=== PATIENT | female | born 1950 | race Caucasian/White ===

== ENCOUNTER 2024-10-14 14:18 | Outpatient (AMB) | payer MEDICARE, SELFPAY ==
--- NOTE | 2024-10-14 14:45 | HO.NEPHOV ---
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 She is 74 years of age and in good health. She has been on Metformin for IGT and recently had been initiated on low dose Jardiance but has not taken it yet. She is concerned about her current serum creatinine and GFR. She hydrates herself well and avoids excess NSAID's. She has no dizziness, PND, orthopnea, edema, hematuria or urinary symptoms. She does not get recurrent UTI and does not have any H/O renal calculi. She has no H/O malignancy. She has no H/O reflux nephropathy as a child. [facility] Medical History (Updated 10/14/24 @ 15:16 by Billy Yoo MD) Chronic kidney disease Surgical History (Updated 10/14/24 @ 14:52 by Ashley Leo MA) H/O breast surgery Hx of cholecystectomy H/O section Family History (Updated 10/14/24 @ 14:51 by Ashley Leo MA) Mother Diabetes mellitus COPD (chronic obstructive pulmonary disease) Paternal Uncle Polycystic kidney disease Social History (Updated 10/14/24 @ 14:50 by Ashley Leo MA) Alcohol intake: never Patient Tobacco Use Status: Never used Tobacco Use of substances other than those prescribed or required for medical reasons: No Review of Systems Const All systems reviewed & are unremarkable except as noted in HPI and below Physical Exam Vital Signs: Last Vital Signs Pulse 81 10/14/24 14:55 BP 110/78 10/14/24 14:55 Pulse Ox 95 10/14/24 14:55 Oxygen Delivery Method Room Air 10/14/24 14:55 BMI result Body Mass Index 30.8 Const General: comfortable and no acute distress Orientation/consciousness: patient oriented x3 HEENT Head: Yes normocephalic Mouth: Normal oral and palatal mucosa present Eyes EOM: EOMs intact bilaterally Neck Neck: Yes supple Resp Auscultation: clear to auscultation bilaterally Cardio Jugular venous distension: no JVD Rate: regular rate GI Palpation (GI): Soft to palpation Auscultation: normal bowel sounds General: Yes no CVA tenderness Back/Spine/Pelvis Back: no CVA tenderness Skin General skin exam: no rashes or lesions noted Neuro General: patient oriented x3 and moves all extremities Extrem General: Yes no pedal edema Assessment & Plan Assessment & Plan (1) CKD (chronic kidney disease) stage 2, GFR 60-89 ml/min: Code(s): N18.2 - Chronic kidney disease, stage 2 (mild) Category: Medical Plan Claudette has mild CKD likely due to loss of GFR due to unknown etiology at an unknown time. Her serum creatinine is marginally abnormal with loss of GFR, manifesting now likely when she had loss of GFR with ageing. She has no proteinuria or hematuria and her BP is at goal. She has IGT and is on metformin. I encouraged her to take Jardiance and come off metformin with time( HbA1c ordered in 3 months) . I have ordered 24 hour urine for cr clearance. She can have GLP 1 agonist. We can consider low dose of ACEI in the future if she tolerates it. She should remain well hydrated and minimize NSAID's. All these were discussed in detail. Answered all questions and F/U was given. Orders: Orders Creatinine Clearance Urine 24U Today N18.2 - Chronic kidney disease, stage 2 (mild) Creatinine Today N18.2 - Chronic kidney disease, stage 2 (mild) Blood Urea Nitrogen Today N18.2 - Chronic kidney disease, stage 2 (mild) Hemoglobin A1c 1 Month N18.2 - Chronic kidney disease, stage 2 (mild) Coding Level of Care Code Est Pt Level 4 (71818) Diagnoses CKD (chronic kidney disease) stage 2, GFR 60-89 ml/min N18.2
[2024-10-14 14:55] VITALS: BP 110/78; PULSE 81; O2SAT 95; BMI 30.8
--- OUTSIDE RECORDS SUMMARY | 2024-10-14 15:16 | XMS_ITS | Encounter Summary ---
Author Organization [facility] Address [address] [place] [id number] Care Team Providers Care Hospice Nurse Practitioner Name Role Phone Christy Hunt Primary Care Provider [phone] Encounter Details Date Type Department Care Team (Late st Contact Info) Description 02/25/2020 Scanned Document [facility] [address] [place] [address] Javi Sumner MD [address] [phone] Social History Tobacco Use Types Packs/Day Years Used Date Smoking Tobacco: Never Smokeless Tobacco: Never Comments Unknown Sex and Gender Information Value Date Recorded Sex Assigned at Female 12/08/2022 11:24 AM EDT Legal Sex Female 6:56 PM EDT Gender Identity Female 12/08/2022 11:24 AM EDT Sexual Orientation Heterosexual (straight) 12/08 11:24 AM EDT documented as of this encounter Plan of Treatment Upcoming Encounters Date Type Department Care Team (Late st Contact Info) Description 02/03/2025 8:45 AM EST Office Visit [address] [phone] Javi Sumner MD [address] [phone] documented as of this encounter Visit Diagnoses Not on filedocumented in this encounter Care Teams Hospice Nurse Practitioner Relationship Specialty Start Date End Date Christy Hunt PA PCP - General 01/12/20 documented as of this encounter
--- OUTSIDE RECORDS SUMMARY | 2024-10-14 15:16 | XMS_ITS | Encounter Summary ---
Author Organization [facility] Address [address] [place] [address] Care Team Providers Care Electrical Apprentice Name Role Phone Christy Hunt Primary Care Provider [phone] Encounter Details Date Type Department Care Team (Late st Contact Info) Description 07/07/2021 Scanned Document [facility] [address] [phone] Social History Tobacco Use Types Packs/Day Years [...] Description 02/03/2025 8:45 AM EST Office Visit [address] [phone] Javi Sumner MD [address] [place] [phone] documented as of this encounter Visit Diagnoses Not on filedocumented in this encounter Care Teams Electrical Apprentice Relationship Specialty Start Date End Date Christy Hunt PA PCP - General 01/12/20 documented as of this encounter
--- OUTSIDE RECORDS SUMMARY | 2024-10-14 15:16 | XMS_ITS ---
Author Name [facility] Organization Unknown Results Test Name/Text Value Interpretation Date Range Source HDLc SerPl-mCnc 50.0 mg/dL Normal 08/20/2024 - QU EST Cholest SerPl-mCnc 138.0 mg/dL Normal 08/20/2024 - 200 [facility] NonHDLc SerPl-mCnc 88.0 mg/dL (calc) Normal 08/20/2024 - 130 [facility] LDLc SerPl Calc-mCnc 70.0 mg/dL (calc) Normal 08/20/2024 [facility] Cholest/HDLc SerPl 2.8 (calc) Normal 08/20/2024 - 5 [facility] Trigl SerPl-mCnc 99.0 mg/dL Normal 08/20/2024 - 150 Q [facility] Creat Ur-mCnc 105.0 mg/dL Normal 08/20/2024 20 - [address] Albumin/Creat Ur 3.0 mg/g creat Normal 08/20/2024 - 30 [facility] Microalbumin Ur-mCnc 0.3 mg/dL Normal 08/20/2024 - [facility] Est. average glucose Bld gHb Est-mCnc 143.0 mg/dL (calc) 08/20/2024 [facility] HbA1c MFr Bld 6.2 % Above high normal 08/20/2024 - 5.7 [facility] Prot SerPl-mCnc 6.6 g/dL Normal 08/20/2024 6.1 - 8.[address] CO2 SerPl-sCnc 23.0 mmol/L Normal 08/20/2024 20 - 32 [facility] Albumin/Glob SerPl 1.8 (calc) Normal 08/20/2024 1 - 2.5 [facility] Globulin Ser Calc-mCnc 2.4 g/dL (calc) Normal 08/20/2024 1.9 - 3.7 [facility] Sodium SerPl-sCnc 136.0 mmol/L Normal 08/20/2024 135 - 14 6 [facility] AST SerPl-cCnc 19.0 U/L Normal 08/20/2024 10 - 35 [facility] T Creat SerPl-mCnc 1.03 mg/dL Above high normal 08/20/2024 0.6 - 1 [facility] Albumin SerPl-mCnc 4.2 g/dL Normal 08/20/2024 3.6 - 5.1 [facility] Potassium SerPl-sCnc 4.3 mmol/L Normal 08/20/2024 3.5 - 5 .3 [facility] ALP SerPl-cCnc 85.0 U/L Normal 08/20/2024 37 - 153 [facility] BUN SerPl-mCnc 25.0 mg/dL Normal 08/20/2024 7 - [address] eGFRcr SerPlBld CKD-EPI 2020 57.0 mL/min/1.73m2 Below low normal 08/20/2024 - [facility] Calcium SerPl-mCnc 9.1 mg/dL Normal 08/20/2024 8.6 - 10.4 [facility] Chloride SerPl-sCnc 105.0 mmol/L Normal 08/20/2024 98 - 1 10 [facility] ALT SerPl-cCnc 14.0 U/L Normal 08/20/2024 6 - 29 [facility] BUN/Creat SerPl 24.0 (calc) Above high normal 08/20/2024 6 - 22 [facility] Glucose SerPl-mCnc 99.0 mg/dL Normal 08/20/2024 65 - 99 [facility] Bilirub SerPl-mCnc 0.7 mg/dL Normal 08/20/2024 0.2 - 1.2 [facility] BUN/Creat SerPl SEE NOTE: Normal 04/23/2024 6 - [address] Albumin/Glob SerPl 1.9 (calc) Normal 04/23/2024 1 - 2.5 [facility] Calcium SerPl-mCnc 9.6 mg/dL Normal 04/23/2024 8.6 - 10.4 [facility] Sodium SerPl-sCnc 138.0 mmol/L Normal 04/23/2024 135 - 14 6 [facility] ALP SerPl-cCnc 75.0 U/L Normal 04/23/2024 37 - 153 [facility] Globulin Ser Calc-mCnc 2.3 g/dL (calc) Normal 04/23/2024 1.9 - 3.7 [facility] Creat SerPl-mCnc 0.98 mg/dL Normal 04/23/2024 0.6 - 1 Q [facility] Bilirub SerPl-mCnc 0.5 mg/dL Normal 04/23/2024 0.2 - 1.2 [facility] AST SerPl-cCnc 19.0 U/L Normal 04/23/2024 10 - 35 [facility] Potassium SerPl-sCnc 4.4 mmol/L Normal 04/23/2024 3.5 - 5 .3 [facility] Chloride SerPl-sCnc 104.0 mmol/L Normal 04/23/2024 98 - 1 10 [facility] BUN SerPl-mCnc 23.0 mg/dL Normal 04/23/2024 7 - [address] Prot SerPl-mCnc 6.6 g/dL Normal 04/23/2024 6.1 - 8.[address] Albumin SerPl-mCnc 4.3 g/dL Normal 04/23/2024 3.6 - 5.1 [facility] CO2 SerPl-sCnc 26.0 mmol/L Normal 04/23/2024 20 - 32 [facility] ALT SerPl-cCnc 15.0 U/L Normal 04/23/2024 6 - 29 [facility] Glucose SerPl-mCnc 99.0 mg/dL Normal 04/23/2024 65 - 99 [facility] eGFRcr SerPlBld CKD-EPI 2020 61.0 mL/min/1.73m2 Normal 04/23/2024 - [facility] Phosphate SerPl-mCnc 4.2 mg/dL Normal 04/23/2024 2.1 - 4. 3 [facility] 25(OH)D3+25(OH)D2 SerPl-mCnc 44.0 ng/mL Normal 04/23/2024 30 - 100 [facility] Calcium SerPl-mCnc 9.6 mg/dL Normal 04/23/2024 8.6 - 10.4 [facility] PTH-Intact SerPl-mCnc 19.0 pg/mL Normal 04/23/2024 16 - 7 7 [facility] Cholest SerPl-mCnc 166.0 mg/dL Normal 04/23/2024 - 200 [facility] LDLc SerPl Calc-mCnc 88.0 mg/dL (calc) Normal 04/23/2024 [facility] HDLc SerPl-mCnc 55.0 mg/dL Normal 04/23/2024 - QU EST NonHDLc SerPl-mCnc 111.0 mg/dL (calc) Normal 04/23/2024 - 130 [facility] Trigl SerPl-mCnc 126.0 mg/dL Normal 04/23/2024 - 150 [facility] Cholest/HDLc SerPl 3.0 (calc) Normal 04/23/2024 - 5 [facility] HbA1c MFr Bld 6.4 % of total Hgb Above high normal 04/23/2024 - 5.7 [facility] Est. average glucose Bld gHb Est-mCnc 151.0 mg/dL (calc) Normal 04/23/2024 [facility] Bilirub SerPl-mCnc 0.6 mg/dL Normal 12/26/2023 0.2 - 1.2 [facility] BUN SerPl-mCnc 17.0 mg/dL Normal 12/26/2023 7 - [address] Creat SerPl-mCnc 1.03 mg/dL Above high normal 12/26/2023 0.6 - 1 [facility] Globulin Ser Calc-mCnc 2.1 g/dL (calc) Normal 12/26/2023 1.9 - 3.7 [facility] Albumin SerPl-mCnc 4.2 g/dL Normal 12/26/2023 3.6 - 5.1 [facility] Sodium SerPl-sCnc 140.0 mmol/L Normal 12/26/2023 135 - 14 6 [facility] ALP SerPl-cCnc 67.0 U/L Normal 12/26/2023 37 - 153 [facility] T eGFRcr SerPlBld CKD-EPI 2020 58.0 mL/min/1.73m2 Below low normal 12/26/2023 - [facility] Potassium SerPl-sCnc 4.4 mmol/L Normal 12/26/2023 3.5 - 5 .3 [facility] Calcium SerPl-mCnc 9.4 mg/dL Normal 12/26/2023 8.6 - 10.4 [facility] ALT SerPl-cCnc 18.0 U/L Normal 12/26/2023 6 - 29 [facility] Chloride SerPl-sCnc 105.0 mmol/L Normal 12/26/2023 98 - 1 10 [facility] Albumin/Glob SerPl 2.0 (calc) Normal 12/26/2023 1 - 2.5 [facility] CO2 SerPl-sCnc 25.0 mmol/L Normal 12/26/2023 20 - 32 [facility] Prot SerPl-mCnc 6.3 g/dL Normal 12/26/2023 6.1 - 8.[address] BUN/Creat SerPl 17.0 (calc) Normal 12/26/2023 6 - 22 Q [facility] AST SerPl-cCnc 23.0 U/L Normal 12/26/2023 10 - 35 [facility] Glucose SerPl-mCnc 98.0 mg/dL Normal 12/26/2023 65 - 99 [facility] TSH SerPl-aCnc 2.43 mIU/L Normal 12/26/2023 0.4 - 4.[address] Basophils/leuk NFr Bld Auto 1.0 % Normal 12/26/2023 [facility] Monocytes/leuk NFr Bld Auto 9.9 % Normal 12/26/2023 [facility] Hct VFr Bld Auto 40.3 % Normal 12/26/2023 35 - 45 [facility] Lymphocytes/leuk NFr Bld Auto 23.3 % Normal 12/26/2023 [facility] Monocytes # Bld Auto 485.0 cells/uL Normal 12/26/2023 200 - 950 [facility] PMV Bld Bobby-Seymour 9.8 fL Normal 12/26/2023 7.5 - 12.5 [facility] Platelet # Bld Auto 302.0 Thousand/uL Normal 12/26/2023 140 - 400 [facility] Neutrophils # Bld Auto 2896.0 cells/uL Normal 12/26/2023 1500 - 7800 [facility] Lymphocytes # Bld Auto 1142.0 cells/uL Normal 12/26/2023 850 - 3900 [facility] Eosinophil/leuk NFr Bld Auto 6.7 % Normal 12/26/2023 [facility] Basophils # Bld Auto 49.0 cells/uL Normal 12/26/2023 0 - 200 [facility] Neutrophils/leuk NFr Bld Auto 59.1 % Normal 12/26/2023 [facility] RBC # Bld Auto 4.33 Million/uL Normal 12/26/2023 3.8 - 5. 1 [facility] WBC # Bld Auto 4.9 Thousand/uL Normal 12/26/2023 3.8 - 10 .8 [facility] RDW RBC Auto-Rto 12.2 % Normal 12/26/2023 11 - 15 [facility] MCHC RBC Auto-mCnc 32.0 g/dL Normal 12/26/2023 32 - 36 [facility] Hgb Bld-mCnc 12.9 g/dL Normal 12/26/2023 11.7 - 15.5 [facility] MCH RBC Qn Auto 29.8 pg Normal 12/26/2023 27 - [address] Eosinophil # Bld Auto 328.0 cells/uL Normal 12/26/2023 15 - 500 [facility] MCV RBC Auto 93.1 fL Normal 12/26/2023 80 - 100 [facility] Est. average glucose Bld gHb Est-mCnc 140.0 mg/dL (calc) Normal 12/26/2023 [facility] HbA1c MFr Bld 6.1 % of total Hgb Above high normal 12/26/2023 - 5.7 [facility] NonHDLc SerPl-mCnc 78.0 mg/dL (calc) Normal 12/26/2023 - 130 [facility] HDLc SerPl-mCnc 48.0 mg/dL Below low normal 12/26/2023 - [facility] Cholest/HDLc SerPl 2.6 (calc) Normal 12/26/2023 - 5 [facility] LDLc SerPl Calc-mCnc 63.0 mg/dL (calc) Normal 12/26/2023 [facility] Cholest SerPl-mCnc 126.0 mg/dL Normal 12/26/2023 - 200 [facility] Trigl SerPl-mCnc 66.0 mg/dL Normal 12/26/2023 - 150 Q [facility] History of Medication Use Medication Directions Dispensed Refills Start Date End Date Stat us Jardiance 10 mg tablet Take 1 tablet every day by oral route, for kidney protection/blood sugar. 09/11/2024 active rifAXIMin (XIFAXAN) 550 mg tablet Take 1 tablet (550 mg total) by mouth 3 (three) times a day for 14 days. 05/30/2024 active hydrocodone 10 mg-chlorpheniramine 8 mg/5 mL oral susp extend.rel 12hr Take 5 mL every 12 hours by oral route as needed, for cough. 05/26/2024 active fluticasone-salmetero l (WIXELA INHUB) 500-50 mcg/act inhaler Inhale 1 puff 2 (two) times a day. 05/02/2024 active metformin ER 500 mg tablet,extended release 24 hr Take 1 tablet every day by oral route. 04/29/2024 active doxycycline (VIBRAMYCIN) 100 MG capsule Take 1 capsule (100 mg total) by mouth 2 (two) times a day. 03/03/2024 active sodium,potassium,mag sulfates (Suprep Bowel Prep Kit) 17.5-3.13-1.6 gram recon soln bowel prep kit oral solution Take as directed per instructions from the office. 01/25/2024 active rosuvastatin (CRESTOR) 10 MG tablet 12/26/2021 suspended Atorvastatin 08/24/2021 active CoQ10 100mg Softgel 08/24/2021 a ctive Travatan Z 0.004% Ophthalmic Solution 08/24/2021 activ e risedronate (ACTONEL) 150 mg tablet TAKE 1 TABLET BY MOUTH EVERY 30 DAYS WITH WATER ON EMPTY STOMACH. DO NOT LIE DOWN FOR NEXT 30 MIN 08/19/2021 active escitalopram (LEXAPRO) 10 mg tablet Take 1 tablet (10 mg total) by mouth 1 (one) time each day. 06/14/2021 active triamcinolone-hydroph ilic base 0.1 % topical ointment APPLY TO AFFECTED AREA TWICE A DAY FOR 2 WEEKS, STOP FOR 3 DAYS. REPEAT NEEDED 03/28/2021 5 completed triamcinolone (KENALOG) 0.1 % ointment APPLY TO AFFECTED AREA TWICE A DAY FOR 2 WEEKS, STOP FOR 3 DAYS. REPEAT NEEDED 03/28/2021 active metFORMIN (GLUCOPHAGE) 500 MG tablet 1 qd with breakfast then increase to 1 bid with meals after 2 weeks 12/16/2020 active travoprost, KUN Free, (TRAVATAN Z) 0.004 % ophthalmic solution PLACE 1 DROP INTO BOTH EYES AT BEDTIME 11/07/2019 active cyclosporine 0.05 % eye drops in a dropperette INSTIL ONE DROP INTO EACH EYE TWICE DAILY 5 completed doxycycline hyclate 100 mg capsule TAKE 1 CAPSULE BY MOUTH TWICE A DAY 5 completed oseltamivir 75 mg capsule TAKE 1 CAPSULE TWICE A DAY BY ORAL ROUTE WITH MEAL(S) FOR 5 DAYS. 5 completed prednisone 10 mg tablet PLEASE SEE ATTACHED FOR DETAILED DIRECTIONS 5 completed promethazine-DM 6.25 mg-15 mg/5 mL oral syrup TAKE 5 ML EVERY 6 HOURS BY ORAL ROUTE NEEDED, FOR COUGH. 5 completed risedronate 150 mg tablet Take 1 tablet every month by oral route. 5 completed sodium,potassium,mag sulfates 17.5 gram-3.13 gram-1.6 gram oral soln TAKE DIRECTED PER INSTRUCTIONS FROM THE OFFICE. 5 completed Co Q-10 4 active metformin ER 500 mg tablet,extended release 24 hr active doxycycline hyclate 100 mg capsule active hydrocodone 10 mg-chlorphenirami ne 8 mg/5 mL oral susp extend.rel 12hr active prednisone 10 mg tablet active promethazine-DM 6.25 mg-15 mg/5 mL oral syrup active oseltamivir 75 mg capsule active Jardiance 10 mg tablet active brimonidine 0.1 % eye drops INSTILL 1 DROP INTO EACH EYE TWICE DAILY active cholecalciferol (vitamin D3) 50 mcg (2,000 unit) tablet Take 2,000 Units by mouth 2 (two) times a day. active cyanocobalamin (vit B-12) 500 mcg tablet Take 1 tablet (500 mcg total) by mouth daily. active escitalopram 10 mg tablet TAKE 1 TABLET BY MOUTH EVERY DAY active magnesium citrate active mupirocin 2 % topical ointment APPLY TO AFFECTED AREA TWICE A DAY FOR 10 DAYS active rosuvastatin 10 mg tablet TAKE 1 TABLET BY MOUTH DAILY. FOR CHOLESTEROL AND PREVENTION OF HEART ATTACK AND STROKE active Travatan Z 0.004 % eye drops INSTILL 1 DROP INTO AFFECTED EYE(S) BY OPHTHALMIC ROUTE ONCE DAILY INTHE EVENING active travoprost 0.004 % eye drops INSTILL 1 DROP INTO BOTH EYES AT BEDTIME active trazodone 50 mg tablet TAKE 1 TO 2 TABLETS BY MOUTH EVERY DAY AT BEDTIME FOR INSOMNIA active Wixela Inhub 500 mcg-50 mcg/dose powder for inhalation INHALE 1 PUFF TWICE A DAY active cholecalciferol (VITAMIN D-3) 50 mcg (2,000 unit) tablet Take 1 tablet (2,000 Units total) by mouth 2 (two) times a day. active cycloSPORINE (RESTASIS) 0.05 % ophthalmic emulsion 1 drop. activ e Allergies Allergen Reaction Severity Comment Documented Date Source Statu s METFORMIN HCL DIARRHEA 06/06/2022 [facility] acti ve SULFA (SULFONAMIDE ANTIBIOTICS) RASH 11/20/2014 [facility] active SULFA ANTIBIOTICS RASH/DERMATIT IS 11/20/2014 [facility] active MELOXICAM RASH/DERMATIT IS [facility] PENICILLINS RASHRASH/DERM ATITIS Unsure of reaction [facility] METFORMIN DIARRHEA [facility] MOBIC E[facility]_PODCRCT PENICILLIN ENS_PODCRCT Problems Problem Status Onset Date Problem Type Date of Resolution Source Tendinitis / enthesopathy RIGHT FOOT, capsulitis, periostitis active 2016-06-13 ProblemAct [facility] Plantar Flexed Metatarsal - Metatarsalgia, RIGHT foot active 2018-02-13 ProblemAct [facility] Equinus, acquired pes cavus, plantar flex met, LEFT other acquired deformities active 2016-06-13 ProblemAct [facility] Heel pain active 2021-08-24 ProblemAct [facility]_PODC RCT Plantar Flexed Metatarsal - Metatarsalgia, LEFT foot active 2018-02-13 ProblemAct [facility] Porokeratoma active 2021-08-24 ProblemAct ENS_P ODCRCT Primary osteoarthritis, right ankle and foot active 2024-09-29 EncounterDiagnosisAct ENS_PO DCRCT HALLUX RIGIDUS active 2010-09-06 ProblemAct ENS _PODCRCT Hallux valgus, right foot active 2024-09-29 ProblemAct ENS_PODCRCT [id number] - Heel pain active 2024-09-[address] ENS_PODCRCT Tendinitis / enthesopathy LEFT FOOT, capsulitis, periostitis active 2016-06-13 ProblemAct ENS_PODCRCT SYNOVITIS AND TENOSYNOVITIS active 2010-10-18 ProblemAct ENS_PODCRCT Equinus, acquired pes cavus, plantar flex met, RIGHT other acquired deformities active 2016-06-13 ProblemAct ENS_PODCRCT Coronary artery finding active 2018-12-01 ProblemAct [facility] Pain in bilateral legs active 2020-12-24 ProblemAct [facility] Sarcoidosis active 2024-02-25 ProblemAct [facility] Dyslipidemia active 2019-04-14 ProblemAct [facility] NE Impaired glucose tolerance active 2024-04-29 ProblemAct [facility] Generalized anxiety disorder active 2024-04-29 ProblemAct [facility] Pain of hip region active 2017-08-20 ProblemAct [facility] Oral lichen planus active 2020-06-29 ProblemAct [facility] Talipes planus active 2019-05-12 ProblemAct [facility] Pain in female genitalia on intercourse active 2014-11-23 ProblemAct [facility] Microscopic hematuria active 2018-11-14 ProblemAct [facility] Chronic kidney disease stage 3A active 2024-09-11 ProblemAct [facility] Vaginal dryness active 2015-12-[address] [facility] Functional diarrhea active 2024-04-29 ProblemAct [facility] Family history of breast cancer active 2021-02-28 ProblemAct [facility] Muscle weakness of limb active 2020-12-24 ProblemAct [facility] Migraine without aura, not refractory active 2022-12-26 ProblemAct [facility] Vaginal discharge active 2021-02-28 ProblemAct [facility] Dyspareunia in female active 2014-11-23 ProblemAct [facility] Osteopenia of multiple sites active 2021-02-28 ProblemAct [facility] History of COVID-19 active 2021-08-16 ProblemAct [facility] Flat foot active 2019-05-12 ProblemAct [facility] G Hip pain, bilateral active 2017-08-20 ProblemAct [facility] Migraine without aura and without status migrainosus, not intractable active 2022-12-26 ProblemAct [facility] Irritable bowel syndrome with diarrhea active EncounterDiagnosisAct CT_THN EMG Microscopic hematuria active 2018-11-14 ProblemAct [facility] Agatston coronary artery calcium score less than 100 active 2018-12-01 ProblemAct [facility] G Sarcoidosis active 2018-11-14 ProblemAct [facility] EMG Lower extremity weakness active 2020-12-24 ProblemAct [facility] Vaginal dryness, menopausal active 2015-12-03 ProblemAct [facility] Bilateral leg pain active 2020-12-24 ProblemAct [facility] Oral lichen planus active 2020-06-29 ProblemAct [facility] Vaginal discharge active 2017-12-25 ProblemAct [facility] Osteopenia of spine active 2016-12-04 ProblemAct [facility] Moderate persistent asthmatic bronchitis without complication active EncounterDiagnosisAct [facility] Class 1 obesity due to excess calories with serious comorbidity and body mass index (BMI) of 30.0 to 30.9 in adult active 2019-11-24 ProblemAct [facility] Family history of breast cancer active 2019-01-02 ProblemAct [facility] Immunizations Vaccine Date Source Lot Number Status Pneumococcal conjugate vacci ne 20-valent (PCV20), polysaccharide [id number] conjugate, adjuvant, preservative free 09/11/2024 [facility] [id number] comp leted SARS-COV-2 (COVID-19) vaccin e, mRNA, spike protein, LNP, preservative free, 50 mcg/0.5 mL dose 01/11/2024 [facility] [id number] completed influenza, high dose seasona l, preservative-free 11/28/2023 [facility] [id number] completed Respiratory syncytial virus (RSV), vaccine, recombinant, protein subunit RSV prefusion F, adjuvant reconstituted, 0.5 mL, preservative free 01/04/2023 [facility] [id number] completed Respiratory syncytial virus (RSV), unspecified 01/04/2023 [facility] completed influenza, seasonal vaccine, quadrivalent, adjuvanted, 0.5 mL dose, preservative free 12/02/2022 [facility] [id number] completed SARS-COV-2 (COVID-19) vaccin e, mRNA, spike protein, LNP, preservative free, 50 mcg/0.5 mL dose 12/02/2022 [facility] [id number] completed influenza, high-dose seasona l, quadrivalent, preservative free 11/23/2021 [facility] [id number] completed SARS-COV-2 (COVID-19) vaccin e, mRNA, spike protein, LNP, bivalent, preservative free, 50 mcg/0.5 mL dose 11/23/2021 [facility] [id number] completed SARS-COV-2 (COVID-19) vaccin e, mRNA, spike protein, LNP, preservative free, 30 mcg/0.3mL dose 12/03/2020 [facility] [id number] completed influenza, seasonal vaccine, quadrivalent, adjuvanted, 0.5 mL dose, preservative free 10/28/2020 [facility] [id number] completed SARS-COV-2 (COVID-19) vaccin e, mRNA, spike protein, LNP, preservative free, 30 mcg/0.3mL dose 04/20/2020 [facility] [id number] completed SARS-COV-2 (COVID-19) vaccin e, mRNA, spike protein, LNP, preservative free, 30 mcg/0.3mL dose 03/30/2020 [facility] [id number] completed pneumococcal conjugate vaccine, 13 valent 12/04/2019 [facility] CROW [id number] completed tetanus toxoid, reduced diph theria toxoid, and acellular pertussis vaccine, adsorbed 11/24/2019 [facility] [id number] completed influenza, seasonal vaccine, quadrivalent, adjuvanted, 0.5 mL dose, preservative free 11/07/2019 [facility] [id number] completed zoster vaccine subunit 01/13/2019 [facility] co mpleted zoster vaccine subunit 11/13/2018 [facility] co mpleted Influenza, injectable, quadr ivalent, preservative free 11/11/2018 [facility] [id number] completed influenza, high dose seasona l, preservative-free 12/01/2017 [facility] [id number] completed Influenza, injectable, quadr ivalent, preservative free 12/04/2016 [facility] [id number] completed pneumococcal polysaccharide vaccine, 23 valent 02/18/2016 [facility] [id number] completed Pneumococcal polysaccharide 23 valent (Pneumovax 23) 2yo and older 01/20/2016 [facility] com pleted influenza, injectable, quadr ivalent, contains preservative 12/03/2015 [facility] [id number] completed influenza, injectable, quadr ivalent, contains preservative 11/23/2014 [facility] [id number] completed zoster vaccine, live 02/20/2012 [facility] comp leted tetanus and diphtheria toxoi ds, adsorbed, preservative free, for adult use 09/08/2009 [facility] completed tetanus and diphtheria toxoi ds, adsorbed, preservative free, for adult use 02/19/1999 [facility] completed Encounters Encounter Type Encounter Reason Primary Diagnosis Location Date Ambulatory [facility] 09/11/2024 Ambulatory Irritable bowel syndrome with diarrhea Irritable bowel syndrome with diarrhea [facility] 05/30/2024 Ambulatory [facility] 05/26/2024 Ambulatory [facility] 05/01/2024 Ambulatory [facility] 04/29/2024 Ambulatory Moderate persistent asthma, uncomplicated Moderate persistent asthma, uncomplicated [facility] 04/28/2024 [facility] 04/14/2024 Ambulatory Moderate persistent asthma, uncomplicated Moderate persistent asthma, uncomplicated [facility] 03/03[facility]2024 [facility]/18/[facility]24 Ambulatory Age-related nuclear cataract, left eye Age-related nuclear cataract, left eye [facility] 12/28/2022 Ambulatory Age-related nuclear cataract, right eye Age-related nuclear cataract, right eye [facility] 12/14/2022 Ambulatory Sarcoidosis, unspecified [facility] 01/05/2022 Ambulatory Sarcoidosis, unspecified [facility] 12/22/2020 Care Team Organization Name Specialty Phone Email Start Date End Da te [facility]25 [facility] 025 [facility] 02/28/2024 [facility] 06/13/19 [facility] 06/13/19 [facility] 01/05/2022 025 [facility] 12/22/2020 12/22/2020
--- OUTSIDE RECORDS SUMMARY | 2024-10-14 15:16 | XMS_ITS | Clinical Summary ---
Author Organization [facility] Address [address] [place] [address] Care Team Providers Care Cement Loader Name Role Phone Christy Hunt Primary Care Provider [phone] Allergies Active Allergy Reactions Criticality Noted Date Comments Meloxicam Rash/Dermatitis Low 11/20/2014 Penicillins Rash/Dermatitis High 11/20/2014 Unsure of reaction Sulfa Antibiotics Rash/Dermatitis High 11/20/2014 Medications cycloSPORINE (RESTASIS) 0.05 % ophthalmic emulsion 1 drop. Active escitalopram (LEXAPRO) 5 MG tablet Take 1 tablet (5 mg total) by mouth daily. 0 Active travoprost, KUN Free, (TRAVATAN Z) 0.004 % ophthalmic solution PLACE 1 DROP INTO BOTH EYES AT BEDTIME 0 Active albuterol (PROVENTIL HFA; VENTOLIN HFA) 108 (90 Base) MCG/ACT inhalerIndication s:Mild intermittent reactive airway disease without complication Inhale 2 puffs 4 times daily (every 6 hours) as needed for wheezing. 1 Inhaler 1 Active benzonatate (TESSALON) 200 MG capsuleIndication s:Viral URI,Mild intermittent reactive airway disease without complication Take 1 capsule (200 mg total) by mouth 3 (three) times a day as needed for cough. 30 capsule 1 Active metFORMIN (GLUCOPHAGE) 500 MG tablet 1 qd with breakfast then increase to 1 bid with meals after 2 weeks 1 Active rosuvastatin (CRESTOR) 10 MG tablet 2 Active cholecalciferol 10 MCG (400 UNIT) tablet Take 1 tablet (400 Units total) by mouth daily. Active predniSONE (DELTASONE) 10 MG tabletIndications :Moderate persistent asthmatic bronchitis without complication Take 1 tablet (10 mg total) by mouth daily. With food. #5/d x 3 days, #4/d x 3 days, #3/oz8ivxh, #2/d x 3 days and the #1/d x 3 days and stop. 45 tablet 5 Active fluticasone-salme terol (WIXELA INHUB) 500-50 mcg/act inhalerIndication s:Moderate persistent asthmatic bronchitis without complication INHALE 1 PUFF TWICE A DAY 60 each 5 5 Active Active Problems Problem Noted Date Diagnosed Date Class 1 obesity due to exces s calories with serious comorbidity and body mass index (BMI) of 30.0 to 30.9 in adult 11/24/2019 Flat foot 05/12/2019 Dyslipidemia 04/14/2019 Family history of breast cancer 01/02/2019 Agatston coronary artery calcium score less than 100 12/01/2018 Microscopic hematuria 11/14/2018 Sarcoidosis 11/14/2018 Vaginal discharge 12/25/2017 Hip pain, bilateral 08/20/2017 Osteopenia of spine 12/04/2016 Vaginal dryness, menopausal 12/03/2015 Dyspareunia in female 11/23/2014 Resolved Problems Problem Noted Date Diagnosed Date Resolved Date Breast cancer screening 12/25/201704/19 Flu vaccine need 12/04/2016 05/03/2023 Cervical cancer screening 11/23/2014 Family History Medical History Relation Name Comments Cancer Maternal Grandmother Diabetes Mother Pulmonary fibrosis Mother Relation Name Status Comments Maternal Grandmother Mother Social History Tobacco Use Types Packs/Day Years Used Date Smoking Tobacco: Never Smokeless Tobacco: Never Tobacco Cessation:Counseling Given: Not Answered Comments Unknown Sex and Gender Information Value Date Recorded Sex Assigned at Female 12/08/2022 11:24 AM EDT Legal Sex Female 6:56 PM EDT Gender Identity Female 12/08/2022 11:24 AM EDT Sexual Orientation Heterosexual (straight) 12/08 11:24 AM EDT Last Filed Vital Signs Vital Sign Reading Time Taken Comments Blood Pressure 116/80 03/03/2024 9:46 AM EST Pulse 72 03/03/2024 9:46 AM EST Temperature 36.2 C (97.2 F) 12/22/2020 10:12 AM EDT Respiratory Rate 18 01/05/2022 3:53 PM EST Oxygen Saturation 95% 03/03/2024 9:46 AM EST Inhaled Oxygen Concentration - - Weight 79.4 kg (175 lb) 04/28/2024 1:13 PM EDT Height 162.6 cm (5' 4 ) 04/28/2024 1:13 PM EDT Body Mass Index 30.04 04/28/2024 1:13 PM EDT Plan of Treatment Upcoming Encounters Date Type Department Care Team (Late st Contact Info) Description 02/03/2025 8:45 AM EST Office Visit [facility] [place] [address] [place] [address] Javi Sumner MD [address] [place] [id number] Health Maintenance Due Date Last Done Comments Hepatitis C Virus Screening 1950 DTaP/Tdap/Td Vaccines (1 - Tdap) 06/27/1970 Pneumococcal Vaccines 50+ (1 of 2 - PCV) 06/27/1970 Mammogram 1991 Colonoscopy 06/27/1996 Zoster (Shingles) Vaccine (1 of 2) 06/27/2001 RSV Vaccine 60 years and older and Patients (1 - Risk 60-74 years 1-dose series) 2011 DXA Bone Density (Females,Ages 65 and older) 06/27/2016 COVID-19 Vaccine ( season) 2024 01/11/2024, 12/02/2022, 11/23/2021, Additional history exists Influenza Vaccine 09/19/2024 11/28/2023, , 12/02/2022, Additional history exists Hepatitis B Vaccines Aged Out No long er eligible based on patient's age to complete this topic Medical Devices Implanted Type Area Associate Chief Nurse Device Identifier Shelf Expiration Date Model / Serial / Lot [id number] Implanted:Qty: 1 on 12/28/2022 by Real Vargas MD at [facility], [facility] [employer] [id number] / [id number] / [id number] Implanted:Qty: 1 on 12/14/2022 by Real Vargas MD at [facility], [place] [employer] [id number] / [id number] / Description:[id number] Insurance [facility] MEDICARE MEDICARE PART A & B [facility] MEDICARE [facility] MEDICARE Care Teams Cement Loader Relationship Specialty Start Date End Date Christy Hunt PA PCP - General 01/12/20
--- OUTSIDE RECORDS SUMMARY | 2024-10-14 15:16 | XMS_ITS | Encounter Summary ---
Author Organization [facility] Address [address] [place] [address] Care Team Providers Care Dinker Name Role Phone Christy Hunt Primary Care Provider Christy Hunt Primary Care Provider [phone] Encounter Details Date Type Department Care Team (Late st Contact Info) Description 12/04/2019 Scanned Document [facility] Pulmonary [address] [address] Javi Sumner MD [address] [address] Social History Tobacco Use Types Packs/Day Years [...] Description 02/03/2025 8:45 AM EST Office Visit [address] [phone] Javi Sumner MD [address] [id number] documented as of this encounter Visit Diagnoses Not on filedocumented in this encounter Care Teams Dinker Relationship Specialty Start Date End Date Christy Hunt PA PCP - General 01/12/20 Christy Hunt PA PCP - General 01/11/20 documented as of this encounter
--- OUTSIDE RECORDS SUMMARY | 2024-10-14 15:16 | XMS_ITS | Clinical Summary ---
Author Organization [facility] Address [address] [place] [address] Care Team Providers Care Personnel Director Name Role Phone Christy Hunt PA-C Primary Care Provider Allergies Active Allergy Reactions Criticality Noted Date Comments Meloxicam Rash Low 11/20/2014 Metformin Hcl Diarrhea Low 06/06/2022 Penicillins Rash High 11/20/2014 Unsure of reaction Sulfa Antibiotics Rash High 11/20/2014 Medications Medication Sig Dispensed Refills Start Date End Date Status TRAVATAN Z 0.004 % SOLN ophthalmic solution Place 1 drop into both eyes every night at bedtime. 99 01/11/2017 Active Cholecalciferol (VITAMIN D) 50 MCG (2000 UT) tablet Take 2,000 Units by mouth 2 (two) times a day. 0 Active mupirocin (BACTROBAN) 2 % ointment APPLY TO AFFECTED AREA TWICE A DAY FOR 10 DAYS 0 03/25/2021 Active triamcinolone (KENALOG) 0.1 % ointment APPLY TO AFFECTED AREA TWICE A DAY FOR 2 WEEKS, STOP FOR 3 DAYS. REPEAT NEEDED 0 03/28/2021 Active Coenzyme Q10 (COQ10 PO) Take by mouth. 0 Active TURMERIC PO Take by mouth. 0 Active risedronate (ACTONEL) tablet 150 mgIndications:Osteo penia of multiple sites PLEASE SEE ATTACHED FOR DETAILED DIRECTIONS 3 tablet 0 02/15/2023 Active vitamin B-12 (CYANOCOBALAMIN) 500 MCG tablet Take 1 tablet (500 mcg total) by mouth daily. 0 Active rosuvastatin (CRESTOR) tablet 10 mg TAKE 1 TABLET BY MOUTH DAILY. FOR CHOLESTEROL AND PREVENTION OF HEART ATTACK AND STROKE 90 tablet 2 08/14/2023 Active escitalopram (LEXAPRO) tablet 10 mg TAKE 1 TABLET BY MOUTH EVERY DAY 90 tablet 2 11/13/2023 Active Active Problems Problem Noted Date Diagnosed Date Closed fracture of greater tuberosity of humerus 06/07/2023 06/26/2023 Migraine without aura and wi thout status migrainosus, not intractable 12/26/2022 History of COVID-19 05/202108/16/2021 Overview: Treated with Paxlovid Vaginal odor 02/28/2021 Vaginal discharge 02/28/2021 Osteopenia of multiple sites 02/28/2021 Encounter for screening mamm ogram for malignant neoplasm of breast 02/28/2021 Family history of breast cancer in female 2021 Lower extremity weakness 12/24/2020 Bilateral leg pain 12/24/2020 Oral lichen planus 06/29/2020 Flat foot 05/12/2019 Dyslipidemia 04/14/2019 Agatston coronary artery calcium score 3.8 (11/27) 12/01/2018 Sarcoidosis 11/14/2018 Microscopic hematuria followed by urology 2018 Hip pain, bilateral 08/20/2017 Vaginal dryness, menopausal 12/03/2015 Encounter for routine gynecological examination 11/23/2014 Cervical cancer screening 11/23/2014 Dyspareunia in female 11/23/2014 Resolved Problems Problem Noted Date Diagnosed Date Resolved Date BMI 29.0-29.9,adult 02/28/2021 03/02/19 23 Class 1 obesity due to exces s calories with serious comorbidity and body mass index (BMI) of 31.0 to 31.9 in adult 11/24/2019 02/28/2021 Family history of breast cancer 01/02/2019 02/28/2021 BMD: 03/06/18 03/07/2018 02/28/2021 Overview: LSS T- 1.2 Hip T-0.5 Breast cancer screening 12/25/2017 1007/2020 Vaginal discharge 12/25/2017 11/24/2020 Vaginal odor 12/25/2017 11/11/2018 Mammogram 03/12/17 03/21/2017 Osteopenia of spine 12/04/2016 02/28/19 Flu vaccine need 12/04/2016 11/24/2020 Immunization due 12/03/2015 11/11/2018 Dyspareunia in female 12/03/20152018 Immunizations Name Administration Dates Next Due Boostrix (Tdap) 11/24/2019 Covid-19 (Moderna 12+) Bivalent 50mcg/0.5mL 06/2021 Covid-19 (Moderna 12+) Fall 2022 0.5mL Covid-19 (Pfizer) Dilution Required 12/03/2020,0 04/20/2020,03/30/2020 Influenza Quad (Afluria/Fluz one) 0.5mL >=6mon Vial (SD-IIV4) 12/03/2015,11/23/2014 Influenza Quad (Fluad) 0.5 m L >65Yrs (AIIV4) 12/02/2022,10/28/2020,11/07/2019 Influenza Quad (Fluarix/Fluz one/FluLaval) 0.5mL (SD-IIV4) 11/11/2018,12/04/2016 Influenza Quad (High Dose Fl uzone) 0.7mL >65Yrs (HD-IIV4) 11/23/2021 Pneumococcal Conjugate PCV13 12/04/2019 Pneumococcal Polysaccharide PPSV23 02/18/2016 RSV or RSV MAB ADMINISTERED (UNSPECIFED) 023 Shingrix Vaccine (Zoster Recombinant) 01/13/2019 ,11/13/2018 Td (Tenivac) 09/08/2009,02/19/1999 Zostavax (Zoster Live) 02/20/2012 Family History Medical History Relation Name Comments No Sig Med Hx Father 87 Lung cancer Maternal Grandfather Pancreatic cancer Maternal Grandfather Lung cancer Maternal Grandmother Arthritis Mother 87 COPD Mother 87 Diabetes Mother 87 Hypertension Mother 87 Kidney disease Paternal Grandfather 40 Sjogren's syndrome Sister Relation Name Status Comments Father 87 Alive Maternal Grandfather Maternal Grandmother Mother 87 Alive Paternal Grandfather 40 Paternal Grandmother Sister Social History Tobacco Use Types Packs/Day Years Used Date Smoking Tobacco: Never Smokeless Tobacco: Never Tobacco Cessation:Counseling Given: Not Answered Alcohol Use Standard Drinks/Week Comments No 0 (1 standard drink = 0.6 oz pur e alcohol) Sex and Gender Information Value Date Recorded Sex Assigned at Female 12/25/2017 10:17 AM EST Gender Identity Female 12/25/2017 10:17 AM EST Sexual Orientation Straight 02/28/2021 8: 52 AM EST Job Start Date Occupation Industry Not on file Not on file Not on file Last Filed Vital Signs Vital Sign Reading Time Taken Comments Blood Pressure 130/82 11/08/2023 3:58 PM EDT Pulse 75 11/08/2023 3:58 PM EDT Temperature 36.7 C (98 F) 10/26/2022 9:30 AM EDT Respiratory Rate 16 05/12/2021 11:51 AM EDT Oxygen Saturation 96% 11/08/2023 3:58 PM EDT Inhaled Oxygen Concentration - - Weight 82.6 kg (182 lb) 11/08/2023 3:58 PM EDT Height 162.6 cm (5' 4 ) 11/08/2023 3:58 PM EDT Body Mass Index 31.24 11/08/2023 3:58 PM EDT Plan of Treatment Health Maintenance Due Date Last Done Comments Diabetes: Eye Exam (No Retinopathy) 06/27/1969 Diabetes: Foot Exam 06/27/1969 Diabetes: Microalbumin Test 06/27/1969 Osteoporosis Screening (DEXA Scan) 03/06/2020 03/06/2018 BMI Counseling 03/21/2023 03/21/2022, 02/19, 09/15/2021, Additional history exists COVID-19 Vaccine () 10/21/2023 12/02/2022, 11/23/2021, 12/03/2020, Additional history exists Preventative Health Evaluation 12/27/2023 12/26/2022, 03/02/2022, 12/06/2021, Additional history exists Breast Cancer Screening (Mammogram) 03/08/2024 03/08/2022, 02/23/2021, 02/24/2020, Additional history exists Hemoglobin A1C Due 06/23/2024 12/25/2023, 0 06/19/2023, 12/20/2022, Additional history exists Depression Screening 06/25/2024 06/26/2023, 03/02/2022, 06/14/2021, Additional history exists Fall Risk Assessment 06/25/2024 06/26/2023, 06/06/2022, 06/14/2021, Additional history exists Influenza Vaccine (#1) 2024 3, 11/23/2021, 10/28/2020, Additional history exists Pneumococcal Vaccine (3 of 3 - PPSV23 or PCV20) 12/03/2024 12/04/2019, 02/18/2016, 01/20/2016 Colon Cancer Screening (Colonoscopy) 12/29/2025 12/30/2015 RSV Adult > 60+ Yrs or (1 - 1-dose 75+ series) 06/27/2026 DTap / Tdap / Td (2 - Td or Tdap) 11/23/2029 11/24/2019, 09/08/2009, 02/19/1999 Hepatitis C Screening Completed 01/09/2019 Shingrix-Zoster Vaccine Completed 01/13/2019, 11/13 RSV Ped < 20 months Aged Out 01/04/2023 No longe r eligible based on patient's age to complete this topic Hepatitis B Vaccines Aged Out No long er eligible based on patient's age to complete this topic Advance Directives For more information, please contact: [phone] Documents on File Type Date Recorded Patient Blister Rust Eradicator Expl anation Advance Directive and Living Will 12/29/2015 4:04 PM Latest Code Status on File Code Status Date Activated Date Inactivated Comments Full Code 12/30/2015 9:01 AM 12/30/2015 3:43 PM Thi s code status was ascertained in the following way: discussion with patient. Care Teams Personnel Director Relationship Specialty Start Date End Date Christy Hunt PA-C PCP - General Physician [employer] 11/23/14
--- OUTSIDE RECORDS SUMMARY | 2024-10-14 15:16 | XMS_ITS | Clinical Summary ---
Author Organization [facility] Address [address] [place] [address] Care Team Providers Care Pull Over Machine Operator Name Role Phone Christy Hunt Primary Care Provider [phone] Allergies Active Allergy Reactions Criticality Noted Date Comments Meloxicam Rash Low 11/20/2014 Metformin Hcl Diarrhea Low 06/06/2022 Penicillins Rash High 11/20/2014 Unsure of reaction Sulfa (Sulfonamide Antibiotics) Rash High 03/2014 Medications cholecalciferol (VITAMIN D-3) 50 mcg (2,000 unit) tablet Take 1 tablet (2,000 Units total) by mouth 2 (two) times a day. Active ubidecarenone (COENZYME Q10 ORAL) Take by mouth. Activ e escitalopram (LEXAPRO) 10 mg tablet Take 1 tablet (10 mg total) by mouth 1 (one) time each day. 2 Active metFORMIN (GLUCOPHAGE) 500 mg tablet TAKE 1 TABLET BY MOUTH EVERY DAY WITH BREAKFAST, THEN AFTER 2 WEEKS INCREASE TO 1 TABLET TWICE DAILY WITH MEALS 2 Active mupirocin (BACTROBAN) 2 % ointment APPLY TO AFFECTED AREA TWICE A DAY FOR 10 DAYS 2 Active risedronate (ACTONEL) 150 mg tablet TAKE 1 TABLET BY MOUTH EVERY 30 DAYS WITH WATER ON EMPTY STOMACH. DO NOT LIE DOWN FOR NEXT 30 MIN 2 Active rosuvastatin (CRESTOR) 10 mg tablet TAKE 1 TABLET BY MOUTH DAILY. FOR CHOLESTEROL AND PREVENTION OF HEART ATTACK AND STROKE 2 Active travoprost (Travatan Z) 0.004 % drops Place 1 drop into both eyes every night at bedtime. 7 Active triamcinolone (KENALOG) 0.1 % ointment APPLY TO AFFECTED AREA TWICE A DAY FOR 2 WEEKS, STOP FOR 3 DAYS. REPEAT NEEDED 2 Active TURMERIC ORAL Take by mouth. A ctive rimegepant (NURTEC) [address] 1 tablet (75 mg total) under the tongue 1 (one) time each day if needed for migraine. 3 Active sodium,potassiu m,mag sulfates (Suprep Bowel Prep Kit) 17.5-3.13-1.6 gram recon soln bowel prep kit oral solutionIndicat ions:Diarrhea Take as directed per instructions from the office. 1 kit 4 Active Active Problems Problem Noted Date Diagnosed Date Migraine without aura and wi thout status migrainosus, not intractable 12/26/2022 History of COVID-19 08/16/2021 Overview (03/15/2022): Treated with Paxlovid Osteopenia of multiple sites 02/28/2021 Vaginal discharge 02/28/2021 Vaginal odor 02/28/2021 Bilateral leg pain 12/24/2020 Lower extremity weakness 12/24/2020 Oral lichen planus 06/29/2020 Flat foot 05/12/2019 Dyslipidemia 04/14/2019 Agatston coronary artery calcium score less than 100 12/01/2018 Microscopic hematuria 11/14/2018 Sarcoidosis 11/14/2018 Hip pain, bilateral 08/20/2017 Vaginal dryness, menopausal 12/03/2015 Dyspareunia in female 11/23/2014 Immunizations Name Administration Dates Next Due Influenza Quadravalent, 0.5m l (Fluad) 65yo and older 12/02/2022,10/28/2020,11/07/2019 Influenza Quadravalent, 0.5m l (Fluzone High-dose) 65yo and older 11/23/2021 Influenza Quadrivalent, 0.5m l, preservative free (Fluarix; FluLaval; Fluzone) ages 6mo and older (Afluria) 3yo and older 11/11/2018,12/04/2016 Influenza Quadrivalent, with preservative (Fluzone; Afluria) 6mo and older 12/03/2015,11/23/2014 Moderna (age 6mo & older) Bi valent, COVID-19, 0.5 mL or 0.25 mL dosage 11/23/2021 Endra SARS-CoV-2 COVID-19, mRNA, LNP-S, preservative free 04/20/2020,03/30/2020 Pneumococcal conjugate 13 va lent (Prevnar 13, PCV13) 2mo and older 12/04/2019 Pneumococcal polysaccharide 23 valent (Pneumovax 23) 2yo and older 01/20/2016 Respiratory syncytial virus (RSV), unspecified 01/04/2023 Td Tetanus diptheria, preser vative free (Tenivac) 7yo and older 09/08/2009,02/19/1999 Tdap Tetanus diptheria acell ular pertussis (Boostrix; Adacel) 7yo and older 11/24/2019 Zoster Live 02/20/2012 Zoster recombinant (Shingrix ) 19yo and older 01/13/2019,11/13/2018 Surgical History Surgery Date Site/Laterality Comments SECTION PROCEDURE: SECTION CHOLECYSTECTOMY PROCEDURE:CHOLECYSTECTOMY BREAST BIOPSY PROCEDURE:BREAST BIOPSY COLONOSCOPY 12/30/2015 N/A PROCEDURE:COLONOSCOPY;COMMENT:Procedure: COLONOSCOPY; Surgeon: Elias Fletcher MD; Location: [facility]; Service: Gastroenterology; Laterality: N/A; Medical History Medical History Date Comments Eczema DX:Eczema Rosacea DX:Rosacea Migraine DX:Migraine;COMM ENT:every few months pcp aware Sarcoidosis DX:Sarcoidosis High cholesterol DX:High cholest marisa Glaucoma DX:Glaucoma Pre-diabetes DX:Pre-diabetes Family History Medical History Relation Name Comments No Known Problems Father 87 Lung cancer Maternal Grandfather Pancreatic [...] Date Smoking Tobacco: Never Smokeless Tobacco: Never Alcohol Use Standard Drinks/Week Comments No 0 (1 standard drink = 0.6 oz pur e alcohol) Comments Unknown Sex and Gender Information Value Date Recorded Sex Assigned at Not on file Legal Sex Female 5:49 AM EST Gender Identity Not on file Sexual Orientation Not on file Obstetrics History Last Filed Vital Signs Vital Sign Reading Time Taken Comments Blood Pressure 118/78 05/30/2024 9:31 AM EDT Pulse 95 05/30/2024 9:31 AM EDT Temperature - - Respiratory Rate - - Oxygen Saturation 95% 05/30/2024 9:31 AM EDT Inhaled Oxygen Concentration - - Weight 81.6 kg (180 lb) 05/30/2024 9:31 AM EDT Height 162.6 cm (5' 4 ) 05/30/2024 9:31 AM EDT Body Mass Index 30.9 05/30/2024 9:31 AM EDT Plan of Treatment Health Maintenance Due Date Last Done Comments RSV Immunization Adult Patients (1 - Risk 60-74 years 1-dose series) 2011 01/04/2023 Medicare Annual Wellness Visit 01/26/2022 Social Influencers of Health Screening 01/26/2022 Falls Risk Assessment 06/07/2023 06/06/2022, 022 Depression Screening 02/20/2024 03/02/2022 Breast Cancer Screening 03/08/2024 03/08/2022 COVID-19 Vaccine ( season) 2024 01/11/2024, 12/02/2022, 11/23/2021, Additional history exists Influenza Vaccine (#1) 2024 , 12/02/2022, 11/23/2021, Additional history exists Pneumococcal Vaccine: 50+ Years (3 of 3 - PCV20 or PCV21) 12/03/2024 12/04/2019, 02/18/2016, 01/20/2016 Colorectal Cancer Screening: Colonoscopy 12/29/2025 12/30/2015 Cholesterol Screening (Lipid Panel) 12/21/2027 12/20/2022, 11/30/2021 DTaP,Tdap,and Td Vaccines (4 - Td or Tdap) 11/23/2029 11/24/2019, 09/08/2009, 02/19/1999 Osteoporosis Screening (Bone Density Screening) 02/24/2034 02/25/2024 Hepatitis C Screening Completed 01/10/2019 Zoster Vaccines Completed 01/13/2019, 10/21, 02/20/2012 RSV Immunization Patients Under 20 months Aged Out 01/04/2023 No longer eligible based on patient's age to complete this topic HIB Vaccines Aged Out No longer eligi ble based on patient's age to complete this topic HPV Vaccines Aged Out No longer eligi ble based on patient's age to complete this topic Hepatitis A Vaccines Aged Out No long er eligible based on patient's age to complete this topic Hepatitis B Vaccines Aged Out No long er eligible based on patient's age to complete this topic IPV Vaccines Aged Out No longer eligi ble based on patient's age to complete this topic MMR Vaccines Aged Out No longer eligi ble based on patient's age to complete this topic Meningococcal ACWY Vaccine Aged Out N o longer eligible based on patient's age to complete this topic Meningococcal B Vaccine Aged Out No l onger eligible based on patient's age to complete this topic Varicella Vaccines Aged Out No longer eligible based on patient's age to complete this topic Procedures Procedure Name Priority Date/Time Associated Diagnosis Comments BD BONE DENSITY DXA AXIAL SKELETON Routine 02/25/2024 1:09 PM EST LIPID PANEL Routine 12/20/2022 FALLS RISK ASSESSMENT Routine 06/06/2022 MAMMOGRAPHY Routine 03/08/2022 DEPRESSION SCREENING Routine 03/02/2022 HEPATITIS C SCREENING Routine 01/10/2019 COLONOSCOPY Routine 12/30/2015 from Last 3 Months or Most Recently Relevant to Health Maintenance Results * BD Bone Density DXA Axial Skeleton (02/25/2024 1:09 PM EST) Anatomical Region Laterality Modality Wrist, Hip, L-spine Bone Densito metry Sasha Gardner NP [facility] DXA PROCEDURES Final Result * (ABNORMAL) Lipid panel (12/20/2022) [facility] LDL/HDL Ratio 3 <=5 Triglycerides 75 <=150 mg/dL Cholesterol 135 <=200 mg/dL HDL 51(A) <=50 mg/dL LDL Cholesterol 68 <=100 mg/dL Blood Venous blood specimen / Unknown Result [facility] Provider LAB BLOOD ORDERABLES Jessica l Result * Falls Risk Assessment (06/06/2022) [facility] Falls Risk Assessment Abstracted Result [facility] HEALTH MAINTENANCE Final Result * Mammography (03/08/2022) [facility] Mammogram No interpretation , abstracted Anatomical Region Laterality Modality Other Result [facility] HEALTH MAINTENANCE Final Result * Depression Screening (03/02/2022) [facility] Depression Screening abstracted Result [facility] Provider HEALTH MAINTENANCE Final Result * Hepatitis C Screening (01/10/2019) [facility] Hepatitis C Screening abstracted Result [facility] Provider HEALTH MAINTENANCE Final Result * Colonoscopy (12/30/2015) [facility] Colonoscopy no interpretation , abstracted Anatomical Region Laterality Modality Other Result [facility] Provider HEALTH MAINTENANCE Final Result from Last 3 Months or Most Recently Relevant to Health Maintenance Insurance MEDICARE Care Teams Pull Over Machine Operator Relationship Specialty Start Date End Date Christy Hunt PA [address] [place] [address] PCP - General Internal Medicine 03/17/24
--- OUTSIDE RECORDS SUMMARY | 2024-10-14 15:16 | XMS_ITS | Encounter Summary ---
Author Organization [facility] Address [address] [place] [address] Care Team Providers Care Expanded Duty Dental Assistant Name Role Phone Christy Hunt Primary Care Provider [phone] Encounter Details Date Type Department Care Team ([facility] Contact Info) Description 09/30/2021 Scanned Document [facility] Pulmonary [address] [phone] Pulmonary, Scan Social History Tobacco Use Types Packs/Day Years [...] Encounters Date Type Department Care Team (Late Contact Info) Description 02/03/2025 8:45 AM EST Office Visit [address] [phone] Javi Sumner MD [address] [place] [phone] documented as of this encounter Visit Diagnoses Not on filedocumented in this encounter Care Teams Expanded Duty Dental Assistant Relationship Specialty Start Date End Date Christy Hunt PA PCP - General 01/12/20 documented as of this encounter
== END 2024-10-14 16:25 | disposition home or self-care (01) ==
PROVIDERS: PCP Physician Assistant Medical; Visit Provider Internal Medicine Nephrology
DX: N18.2 Chronic kidney disease, stage 2 (mild) (principal)
CPT/HCPCS: 99214

== ENCOUNTER → 2024-10-14 14:18 | Outpatient (BNVA) | payer MEDICARE, SELFPAY | PROVIDERS: PCP Physician Assistant Medical; Visit Provider Internal Medicine Nephrology | DX: N18.2 Chronic kidney disease, stage 2 (mild) (principal) | CPT/HCPCS: 99212 ==

== ENCOUNTER 2024-10-21 10:16 | Outpatient (REF) | payer MEDICARE, SELFPAY ==
--- OUTSIDE RECORDS SUMMARY | 2024-10-21 11:47 | XMS_ITS | Encounter Summary ---
Author Organization [facility] Address [address] [place] [address] Care Team Providers Care Account Consultant Name Role Phone Christy Hunt Primary Care Provider Christy Hunt Primary Care Provider [phone] Encounter Details Date Type Department Care Team (Late st Contact Info) Description 12/04/2019 Scanned Document [facility] Pulmonary [address] [phone] Javi Sumner MD [address] [address] Social History Tobacco Use Types [...] Description 02/03/2025 8:45 AM EST Office Visit [address] [phone] Javi Sumner MD [address] [address] documented as of this encounter Visit Diagnoses Not on filedocumented in this encounter Care Teams Account Consultant Relationship Specialty Start Date End Date Christy Hunt PA PCP - General 01/12/20 Christy Hunt PA PCP - General 01/11/20 documented as of this encounter
--- OUTSIDE RECORDS SUMMARY | 2024-10-21 11:47 | XMS_ITS | Clinical Summary ---
Author Organization [facility] Address [address] [place] [address] Care Team Providers Care Sales Development Coordinator Name Role Phone Christy Hunt PA-C Primary [...] Advance Directives For more information, please contact: [phone] Documents on File Type Date Recorded Patient Locator Expl anation Advance Directive and Living Will 12/29/2015 4:04 PM Latest Code Status on File Code Status Date Activated Date Inactivated Comments Full Code 12/30/2015 9:01 AM 12/30/2015 3:43 PM Thi s code status was ascertained in the following way: discussion with patient. Care Teams Sales Development Coordinator Relationship Specialty Start Date End Date Christy Hunt PA-C PCP - General Physician Director Global 11/23/14
--- OUTSIDE RECORDS SUMMARY | 2024-10-21 11:47 | XMS_ITS | Clinical Summary ---
Author Organization [facility] Address [address] [place], [place] [phone] Phone Care Team Providers Care Continuous Towel Roller Name Role Phone Unknown, Unknown Primary Care Provider Mckenna lezama Social History Tobacco Use Types Packs/Day Years Used Date Smoking Tobacco: Never Assessed Education Answer Date Recorded Are you interested in more education? Not on annamarie e 06/16/2022 Are you concerned about learning? Not on file 06/16/2022 No 06/16/2022 No 06/16/2022 Digital Access Answer Date Recorded No 07/17/2022 No 07/17/2022 No 07/17/2022 Reliable internet access at home? Not on file 07/17/2022 Device with a working camera? Not on file Comments Unknown Sex and Gender Information Value Date Recorded Sex Assigned at Not on file Legal Sex Female 3:25 PM EDT Gender Identity Not on file Sexual Orientation Not on file Plan of Treatment Health Maintenance Due Date Last Done Comments Adult Td,Tdap Booster 1950 LIPID PANEL 1950 DEPRESSION SCREENING 1963 SMOKING Hx and SMOKELESS TOB ACCO SCREENING 06/27/1964 HEPATITIS C SCREENING 06/27/1969 MAMMOGRAM 1991 COLOGUARD 06/27/1996 COLONOSCOPY 06/27/1996 COLORECTAL CANCER SCREENING 06/27/1996 FIT TEST 06/27/1996 FOBT 06/27/1996 SIGMOIDOSCOPY 06/27/1996 VIRTUAL COLONOSCOPY 06/27/1996 PNEUMOCOCCAL VACCINES (50+ y ears) (1 of 1 - PCV) 06/27/2001 ZOSTER VACCINES (1 of 2) 06/27/2001 OSTEOPOROSIS SCREENING INITI AL (ONE-TIME) 06/27/2016 INFLUENZA VACCINE (#1) 2024 COVID-19 VACCINE ( - 2023-2 5 season) 2024 RSV VACCINE (1 - 1-dose 75+ series) 06/27/2026 HEPATITIS A VACCINES Aged Out No long er eligible based on patient's age to complete this topic HIB VACCINES Aged Out No longer eligi ble based on patient's age to complete this topic MENINGOCOCCAL VACCINES (ACWY) Aged Out No longer eligible based on patient's age to complete this topic MENINGOCOCCAL VACCINES (B) Aged Out N o longer eligible based on patient's age to complete this topic Medical Devices Not on file Insurance MEDICARE PART A & B GENERIC [facility] Address: [address] [place] [address] MEDICARE PART A & B GENERIC COMMERCIAL [facility] Address: [address] [place] [address] MEDICARE PART A & B GENERIC COMMERCIAL MEDICARE PART A & B GENERIC COMMERCIAL MEDICARE PART A & B GENERIC COMM[facility]CIAL [facility] Address: [address] [place] [address] MEDICARE PART A & B GENERIC COMMERCIAL MEDICARE PART A & B GENERIC COMMERCIAL MEDICARE PART A & B GENERIC COMMERCIAL MEDICARE PART A & B GENERIC COMMERCIAL Care Teams Continuous Towel Roller Relationship Specialty Start Date End Date Unknown, Unknown, PCP - General 8/25/17 Additional Source Comments The information contained in this document represents components of the legal health record. It is not the complete legal health record.[facility]
--- OUTSIDE RECORDS SUMMARY | 2024-10-21 11:47 | XMS_ITS | Encounter Summary ---
Author Organization [facility] Address [address] [place] [address] Care Team Providers Care Finisher Merchant Products Name Role Phone Christy Hunt Primary Care Provider [phone] Encounter Details Date Type Department Care Team ([facility] Contact Info) Description 09/30/2021 Scanned Document [facility] Pulmonary [address] [phone] Pulmonary, Scan Social History Tobacco Use Types [...] Description 02/03/2025 8:45 AM EST Office Visit [address] [phone] Javi Sumner MD [address] [place] [phone] documented as of this encounter Visit Diagnoses Not on filedocumented in this encounter Care Teams Finisher Merchant Products Relationship Specialty Start Date End Date Christy Hunt PA PCP - General 01/12/20 documented as of this encounter
--- OUTSIDE RECORDS SUMMARY | 2024-10-21 11:47 | XMS_ITS | Encounter Summary ---
Author Organization [facility] Address [address] [place] [address] Care Team Providers Care Certified Medical Transcriptionist Name Role Phone Christy Hunt Primary Care Provider [phone] Encounter Details Date Type Department Care Team (Late st Contact Info) Description 02/25/2020 Scanned Document [facility] [address] [place] [address] Javi Sumner MD [address] [phone] Social History Tobacco Use Types Packs/Day Years [...] Description 02/03/2025 8:45 AM EST Office Visit [address] [phone] Javi Sumner MD [address] [phone] documented as of this encounter Visit Diagnoses Not on filedocumented in this encounter Care Teams Certified Medical Transcriptionist Relationship Specialty Start Date End Date Christy Hunt PA PCP - General 01/12/20 documented as of this encounter
--- OUTSIDE RECORDS SUMMARY | 2024-10-21 11:47 | XMS_ITS | Encounter Summary ---
Author Organization [facility] Address [address] [place] [address] Care Team Providers Care Juvenile Justice Officer Name Role Phone Christy Hunt Primary Care Provider [phone] Encounter Details Date Type Department Care Team (Late st Contact Info) Description 07/07/2021 Scanned Document [facility] Pulmonary [address] [phone] Social History Tobacco Use Types Packs/Day Years [...] Description 02/03/2025 8:45 AM EST Office Visit [address] [phone] Javi Sumner MD [address] [place] [phone] documented as of this encounter Visit Diagnoses Not on filedocumented in this encounter Care Teams Juvenile Justice Officer Relationship Specialty Start Date End Date Christy Hunt PA PCP - General 01/12/20 documented as of this encounter
--- OUTSIDE RECORDS SUMMARY | 2024-10-21 11:50 | XMS_ITS | Clinical Summary ---
Author Organization [facility] Address [address] [place] [address] Care Team Providers Care Assistant Credit Manager Name Role Phone Christy Hunt Primary Care Provider [phone] Allergies Active Allergy Reactions Criticality Noted Date [...] 0.5 mL or 0.25 mL dosage 11/23/2021 [facility] SARS-CoV-2 COVID-19, mRNA, LNP-S, preservative free 04/20/2020,03/30/2020 [...] PROCEDURE:COLONOSCOPY;COMMENT:Procedure: COLONOSCOPY; Surgeon: Elias Fletcher MD; Location: [facility] ENDOSCOPY; Service: Gastroenterology; Laterality: N/A; Medical History [...] L-spine Bone Densito metry Sasha Gardner NP [facility] DXA PROCEDURES Final Result * (ABNORMAL) Lipid panel (12/20/2022) [facility] LDL/HDL Ratio 3 <=5 Triglycerides 75 <=150 mg/dL Cholesterol 135 <=200 mg/dL HDL 51(A) <=50 mg/dL LDL Cholesterol 68 <=100 mg/dL Blood Venous blood specimen / Unknown Result [facility] Provider LAB BLOOD ORDERABLES Jessica l Result * Falls Risk Assessment (06/06/2022) [facility] Falls Risk Assessment Abstracted Result [facility] HEALTH MAINTENANCE Final Result * Mammography (03/08/2022) [facility] Mammogram No interpretation , abstracted Anatomical Region Laterality Modality Other Result [facility] HEALTH MAINTENANCE Final Result * Depression Screening (03/02/2022) [facility] Depression Screening abstracted Result [facility] Provider HEALTH MAINTENANCE Final Result * Hepatitis C Screening (01/10/2019) [facility] Hepatitis C Screening abstracted Result [facility] Provider HEALTH MAINTENANCE Final Result * Colonoscopy (12/30/2015) [facility] Colonoscopy no interpretation , abstracted Anatomical Region Laterality Modality Other Result [facility] Provider HEALTH MAINTENANCE Final Result from Last 3 Months or Most Recently Relevant to Health [place] [phone] Care Teams Assistant Credit Manager Relationship Specialty Start Date End Date Christy Hunt PA [address] [place] [address] PCP - General Internal Medicine 03/17/24
--- OUTSIDE RECORDS SUMMARY | 2024-10-21 11:50 | XMS_ITS | Clinical Summary ---
Author Organization [facility] Address [address] [place] [address] Care Team Providers Care Capacity Management Specialist Name Role Phone Christy Hunt Primary Care Provider [phone] Allergies Active Allergy Reactions Criticality Noted Date [...] x 3 days, #4/d x 3 days, #3/kf5dfns, #2/d x 3 days and the #1/d [...] Description 02/03/2025 8:45 AM EST Office Visit [facility] Pulmonary [place] [address] [place] [address] Javi Sumner MD [address] [place] [phone] Health Maintenance Due Date Last Done Comments Advance Care Planning 1950 Hepatitis C Virus Screening 1950 DTaP/Tdap/Td Vaccines [...] this topic Medical Devices Implanted Type Area Director Broadcast Device Identifier Shelf Expiration Date Model / Serial / Lot [id number] Implanted:Qty: 1 on 12/28/2022 by Real Vargas MD at [facility], [facility] [employer] HEALTH CAR [id number] / [id number] / [id number] Implanted:Qty: 1 on 12/14/2022 by Real Vargas MD at [facility], [place] [employer] CAR [id number] / [id number] / Description:[id number] Insurance MEDICARE PART A & B [facility] MEDICARE [facility] MEDICARE Care Teams Capacity Management Specialist Relationship Specialty Start Date End Date Christy Hunt PA PCP - General 01/12/20
[2024-10-21 13:24] LABS: Blood Urea Nitrogen 22 mg/dL (9-16); Estimated Glomerular Filt Rate 50
[2024-10-21 13:59] LABS: Creatinine, mg/dL 90.40
[2024-10-21 14:17] LABS: Creatinine (CrCl) 1.08 mg/dL (0.5-1.4); Total Volume 24 Hour Urine 1150 mL
== END 2024-10-21 10:17 | disposition home or self-care (01) ==
LOC: HO.HKASLDS 10:16
PROVIDERS: Visit Provider Internal Medicine Nephrology
DX: N18.2 Chronic kidney disease, stage 2 (mild) (principal)
CPT/HCPCS: 36415; 82565; 82575; 84520

== ENCOUNTER 2024-11-14 08:51 | Outpatient (REF) | payer MEDICARE, SELFPAY ==
--- OUTSIDE RECORDS SUMMARY | 2024-11-14 09:27 | XMS_ITS | Encounter Summary ---
Author Organization [facility] Address [address] [place] [address] Care Team Providers Care Crew Clerk Name Role Phone Christy Hunt Primary Care Provider [phone] Encounter Details Date Type Department Care Team (Late st Contact Info) Description 09/30/2021 Scanned Document [facility] Pulmonary [address] [phone] Pulmonary, Scan Social History Tobacco Use Types Packs/Day Years Used Date Smoking Tobacco: Never Smokeless Tobacco: Never Comments Unknown Sex and Gender Information Value Date Recorded Sex Assigned at Female 12/08/2022 11:24 AM EDT Legal Sex Female 6:56 PM EDT Gender Identity Female 12/08/2022 11:24 AM EDT Sexual Orientation Heterosexual (straight) 12/08 11:24 AM EDT documented as of this encounter Plan of Treatment Not on file documented as of this encounter Visit Diagnoses Not on filedocumented in this encounter Care Teams Crew Clerk Relationship Specialty Start Date End Date Christy Hunt PA PCP - General 01/12/20 documented as of this encounter
--- OUTSIDE RECORDS SUMMARY | 2024-11-14 09:27 | XMS_ITS | Encounter Summary ---
Author Organization [facility] Address [address] [place] [address] Care Team Providers Care Project Account Manager Name Role Phone Christy Hunt Primary Care Provider [phone] Encounter Details Date Type Department Care Team (Late st Contact Info) Description 07/07/2021 Scanned Document [address] [phone] Social History Tobacco Use Types Packs/Day Years [...] on filedocumented in this encounter Care Teams Project Account Manager Relationship Specialty Start Date End Date Christy Hunt PA PCP - General 01/12/20 documented as of this encounter
--- OUTSIDE RECORDS SUMMARY | 2024-11-14 09:27 | XMS_ITS | Clinical Summary ---
Author Organization [facility] Address [address] [place] [address] Care Team Providers Care Director Of Operations Support Name Role Phone Christy Hunt Primary Care Provider [phone] Allergies Active Allergy Reactions Criticality Noted Date [...] HFA; VENTOLIN HFA) 108 (90 Base) MCG/ACT inhalerIndicatio ns:Mild intermittent reactive airway disease without complication Inhale 2 puffs 4 times daily (every 6 hours) as needed for wheezing. 1 Inhaler 1 Active Additional Information Patient not taking.Reported on 11/06/2024 benzonatate (TESSALON) 200 MG capsuleIndicatio ns:Viral URI,Mild intermittent reactive airway disease without complication Take 1 capsule (200 mg total) by mouth 3 (three) times a day as needed for cough. 30 capsule 1 Active Additional Information Patient not taking.Reported on 11/06/2024 metFORMIN (GLUCOPHAGE) 500 MG tablet 1 qd with breakfast then increase to 1 bid with meals after 2 weeks 1 Active rosuvastatin (CRESTOR) 10 MG tablet 2 Active cholecalciferol 10 MCG (400 UNIT) tablet Take 1 tablet (400 Units total) by mouth daily. Active predniSONE (DELTASONE) 10 MG tabletIndication s:Moderate persistent asthmatic bronchitis without complication Take 1 tablet (10 mg total) by mouth daily. With food. #5/d x 3 days, #4/d x 3 days, #3/zc1qtpa, #2/d x 3 days and the #1/d x 3 days and stop. 45 tablet 5 Active Additional Information Patient not taking.Reported on 11/06/2024 fluticasone-salm eterol (WIXELA INHUB) 500-50 mcg/act inhalerIndicatio ns:Moderate persistent asthmatic bronchitis without complication INHALE 1 PUFF TWICE A DAY 60 each 5 5 Active brimonidine (ALPHAGAN P) 0.1 % Solution Administer 1 drop to both eyes. Active cyanocobalamin (VITAMIN B-12) 500 MCG tablet Take 1 tablet (500 mcg total) by mouth. Active Jardiance 10 MG tablet 1 tablet (10 mg total). Active Magnesium Citrate (CITROMA PO) Active triamcinolone (KENALOG) 0.1 % ointment Apply topically. 7 Active Active Problems Problem Noted Date Diagnosed [...] need 12/04/2016 05/03/2023 Cervical cancer screening 11/23/2014 Encounters Date Type Department Care Team Description 11/06/2024 10:30 AM EDT Office Visit [facility] Pulmonary [address] [phone] Javi Sumner MD Sarcoidosis (Primary Dx) 11/06/2024 Travel from Last 3 Months Family History Medical History Relation Name Comments [...] Sign Reading Time Taken Comments Blood Pressure 100/80 11/06/2024 10:33 AM EDT Pulse 98 11/06/2024 10:33 AM EDT Temperature 35.9 C (96.7 F) 11/06/2024 10:33 AM EDT Respiratory Rate 18 01/05/2022 3:53 PM EST Oxygen Saturation 96% 11/06/2024 10:33 AM EDT Inhaled Oxygen Concentration - - Weight 79.8 kg (176 lb) 11/06/2024 10:33 AM EDT Height 162.6 cm (5' 4 ) 11/06/2024 10:33 AM EDT Body Mass Index 30.21 11/06/2024 10:33 AM EDT Plan of Treatment Health Maintenance [...] Bone Density (Females,Ages 65 and older) 06/27/2016 Influenza Vaccine 09/19/2024 11/28/2023, , 12/02/2022, Additional history exists COVID-19 Vaccine ( season) 2024 01/11/2024, 12/02/2022, 11/23/2021, Additional history exists Hepatitis B Vaccines Aged Out No long er eligible based on patient's age to complete this topic Medical Devices Implanted Type Area Assistant Toddler Teacher Device Identifier Shelf Expiration Date Model / Serial / Lot [id number] Implanted:Qty: 1 on 12/28/2022 by Real Vargas MD at [facility] [place], [place] [employer] CAR [id number] / [id number] / [id number] Implanted:Qty: 1 on 12/14/2022 by Real Vargas MD at [facility] [place], [employer] CAR [id number] / [id number] / Description:[id number] Insurance [facility] MEDICARE [facility] MEDICARE Member Subscriber Plan / Payer (Ef fective 2021-Present) Name:Claudette Kaiser Relation to Subscriber:Self Name:Claudette Kaiser Payer ID:[id number] (NAIC) Type:Not on file Address: [address] [facility] MEDICARE [facility] MEDICARE Care Teams Director Of Operations Support Relationship Specialty Start Date End Date Christy Hunt PA PCP - General 01/12/20
--- OUTSIDE RECORDS SUMMARY | 2024-11-14 09:27 | XMS_ITS | Encounter Summary ---
Author Organization [facility] Address [address] [place] [address] Care Team Providers Care Concrete Batch Plant Operator Name Role Phone Christy Hunt Primary Care Provider [phone] Christy Hunt Primary Care Provider [phone] Encounter Details Date Type Department Care Team (Late st Contact Info) Description 12/04/2019 Scanned Document [facility] Pulmonary [place] [address] [place] [address] Javi Sumner MD [address] [place] [address] [place] [address] Social History Tobacco Use Types Packs/Day Years [...] on filedocumented in this encounter Care Teams Concrete Batch Plant Operator Relationship Specialty Start Date End Date Christy Hunt PA PCP - General 01/12/20 Christy Hunt PA PCP - General 01/11/20 documented as of this encounter
--- OUTSIDE RECORDS SUMMARY | 2024-11-14 09:27 | XMS_ITS | Encounter Summary ---
Author Organization [facility] Address [address] [place] [address] Care Team Providers Care Corporation Secretary Name Role Phone Christy Hunt Primary Care Provider [phone] Encounter Details Date Type Department Care Team (Late st Contact Info) Description 02/25/2020 Scanned Document [facility] Pulmonary [place] [address] [place] [address] Javi Sumner MD 85 [facility] [address] [place] [address] Social History Tobacco Use Types Packs/Day Years [...] on filedocumented in this encounter Care Teams Corporation Secretary Relationship Specialty Start Date End Date Christy Hunt PA PCP - General 01/12/20 documented as of this encounter
--- OUTSIDE RECORDS SUMMARY | 2024-11-14 09:27 | XMS_ITS | Clinical Summary ---
Author Organization [facility] Address [address] [place] [address] Care Team Providers Care Wallpaper Inspector Name Role Phone Christy Hunt PA-C Primary [...] 03/21/2023 03/21/2022, 02/19, 09/15/2021, Additional history exists Preventative Health Evaluation 12/27/2023 12/26/2022, 03/02/2022, 12/06/2021, Additional history exists Breast Cancer Screening (Mammogram) 03/08/2024 03/08/2022, 02/23/2021, 02/24/2020, Additional history exists Hemoglobin A1C Due 06/23/2024 12/25/2023, 0 06/19/2023, 12/20/2022, Additional history exists Depression Screening 06/25/2024 06/26/2023, 03/02/2022, 06/14/2021, Additional history exists Fall Risk Assessment 06/25/2024 06/26/2023, 06/06/2022, 06/14/2021, Additional history exists COVID-19 Vaccine ( season) 2024 12/02/2022, 11/23/2021, 12/03/2020, Additional history exists Influenza Vaccine (#1) 2024 , 11/23/2021, 10/28/2020, Additional history exists Pneumococcal Vaccine [...] Advance Directives For more information, please contact: [phone] Documents on File Type Date Recorded Patient Cordwood Cutter Expl anation Advance Directive and Living Will 12/29/2015 4:04 PM Latest Code Status on File Code Status Date Activated Date Inactivated Comments Full Code 12/30/2015 9:01 AM 12/30/2015 3:43 PM Thi s code status was ascertained in the following way: discussion with patient. Care Teams Wallpaper Inspector Relationship Specialty Start Date End Date Christy Hunt PA-C PCP - General Physician Senior Analyst Programmer 11/23/14
--- OUTSIDE RECORDS SUMMARY | 2024-11-14 09:27 | XMS_ITS | Clinical Summary ---
Author Organization [facility] [place] Address [address] [place] [address] Care Team Providers Care Steam Brush Operator Name Role Phone Christy Hunt Primary Care Provider [phone] Allergies Active Allergy Reactions Criticality Noted Date [...] 0.5 mL or 0.25 mL dosage 11/23/2021 [employer]rik SARS-CoV-2 COVID-19, mRNA, LNP-S, preservative free 04/20/2020,03/30/2020 [...] PROCEDURE:COLONOSCOPY;COMMENT:Procedure: COLONOSCOPY; Surgeon: Elias Fletcher MD; Location: [facility]; Service: Gastroenterology; Laterality: N/A; Medical History [...] L-spine Bone Densito metry Sasha Gardner NP [facility] DXA PROCEDURES Final Result * (ABNORMAL) Lipid panel (12/20/2022) [facility] LDL/HDL Ratio 3 <=5 Triglycerides 75 <=150 mg/dL Cholesterol 135 <=200 mg/dL HDL 51(A) <=50 mg/dL LDL Cholesterol 68 <=100 mg/dL Blood Venous blood specimen / Unknown Result [facility] Provider LAB BLOOD ORDERABLES Jessica l Result * Falls Risk Assessment (06/06/2022) [facility] Falls Risk Assessment Abstracted Result [facility] HEALTH MAINTENANCE Final Result * Mammography (03/08/2022) [facility] Mammogram No interpretation , abstracted Anatomical Region Laterality Modality Other Result [facility] HEALTH MAINTENANCE Final Result * Depression Screening (03/02/2022) [facility] Depression Screening abstracted Result [facility] Provider HEALTH MAINTENANCE Final Result * Hepatitis C Screening (01/10/2019) [facility] Hepatitis C Screening abstracted Result [facility] Provider HEALTH MAINTENANCE Final Result * Colonoscopy (12/30/2015) [facility] Colonoscopy no interpretation , abstracted Anatomical Region Laterality Modality Other Result [facility] Provider HEALTH MAINTENANCE Final Result from Last 3 Months or Most Recently Relevant to Health Maintenance Insurance MEDICARE Care Teams Steam Brush Operator Relationship Specialty Start Date End Date Christy Hunt PA [address] [place] [id number] PCP - General Internal Medicine 03/17/24
[2024-11-14 13:39] LABS: Hemoglobin A1C 146.3597 umol/L; Total Hemoglobin (HGBA1C) 3240.8270 umol/L
== END 2024-11-14 08:52 | disposition home or self-care (01) ==
LOC: HO.HKASLDS 08:51
PROVIDERS: Visit Provider Internal Medicine Nephrology
DX: N18.2 Chronic kidney disease, stage 2 (mild) (principal); Z13.1 Encounter for screening for diabetes mellitus
CPT/HCPCS: 36415; 83036